=== PATIENT | male | born 1940 | race Caucasian/White ===

== ENCOUNTER 2017-10-26 11:09 | Day surgery (SDC) | payer MEDICARE ==
[2017-10-26] MEDS ORDERED: CEFAZOLIN 1 GM/50 ML (PMX) 50 ML IVPB (12:00)
[2017-10-26] MEDS ORDERED: MIDAZOLAM 1 MG/ML 2 ML INJ (16:59)
[2017-10-26] MEDS ORDERED: FENTAnyl 50 MCG/ML VIAL (17:00)
[2017-10-26] MEDS ORDERED: ETOMIDATE 20 MG INJ (17:50)
[2017-10-26] MEDS ORDERED: LIDOCAINE 2% (SDV) 5 ML INJ (17:50)
[2017-10-26] MEDS ORDERED: CEFAZOLIN 1 GM INJ (17:52)
[2017-10-26] MEDS ORDERED: ONDANSETRON 4 MG INJ (17:54)
[2017-10-26] MEDS ORDERED: LABETALOL HCL 20MG INJ IV (18:30)
[2017-10-26] MEDS ORDERED: OXYCODONE/ACETAMINOPHEN (5/325) TAB PO (18:30)
[2017-10-26] MEDS ORDERED: ONDANSETRON 4 MG INJ IV (18:30)
[2017-10-26] MEDS ORDERED: DIPHENHYDRAMINE 50 MG INJ IV (18:30)
[2017-10-26] MEDS ORDERED: MEPERIDINE 25 MG INJ IV (18:30)
[2017-10-26] MEDS ORDERED: HYDROmorphONE (0.2 MG/ML) 10ML SYG IV ×2 (18:30)
[2017-10-26] MEDS ORDERED: FENTAnyl 50 MCG/ML VIAL IV (18:30)
[2017-10-26] MEDS ORDERED: hydrALAzine 20 MG INJ IV (18:30)
[2017-10-26] MEDS ORDERED: METOCLOPRAMIDE 10 MG INJ IV (18:30)
== END 2017-10-26 19:35 | disposition home or self-care (01) ==
LOC: SDS 11:09
DX: N40.1 Benign prostatic hyperplasia with lower urinary tract symptoms (principal); N39.41 Urge incontinence; R35.0 Frequency of micturition; R39.15 Urgency of urination; Z86.73 Personal history of transient ischemic attack (TIA), and cerebral infarction without residual deficits; Z85.820 Personal history of malignant melanoma of skin; E78.5 Hyperlipidemia, unspecified; Z88.2 Allergy status to sulfonamides; Z79.82 Long term (current) use of aspirin
CPT/HCPCS: 52441